=== PATIENT | female | born 1955 | race Caucasian/White ===

== ENCOUNTER 2019-06-19 12:21 | Outpatient (CLI) | payer OTHER ==
[~2019-06-19 12:21] MED LIST: HYDR2TAB29 PO; SENN-177 PO; THYROID COMPOUND; TIZA2CAP2 PO; [UNRECOGNIZED DRUG - OTHER] PO
== END 2019-06-19 23:59 | disposition home or self-care (01) ==
LOC: CFH 12:21
PROVIDERS: ATTEND Nurse Practitioner Family
DX: Z12.31 Encounter for screening mammogram for malignant neoplasm of breast (principal); N64.89 Other specified disorders of breast; Z85.3 Personal history of malignant neoplasm of breast; Z87.891 Personal history of nicotine dependence; Z88.8 Allergy status to other drugs, medicaments and biological substances
CPT/HCPCS: 77063; 77067